=== PATIENT | female | born 1960 | race Caucasian/White ===

== ENCOUNTER 2016-10-31 01:50 | Emergency (ER) | payer OTHER ==
--- NOTE | 2016-10-31 03:21 | ED ORDER SUMMARY ---
..... Patient: NARESH CLARKE OrderSheet [facility] VisitID: [id number] [address] [place] [address] 56y, F Registration Date/Time: 10/31/2016 ORDER SHEET Weight: 108.8 kg (stated) Allergies: Sulfa Antibiotics GENERAL ORDERS: CBC w Diff Urgent (02:14 10/31/2016 Deny Hutchins) (Ack 2:15 HSoule) (3:36 TLewis R.N.) CMP Urgent (02:14 10/31/2016 Deny Hutchins) (Ack 2:15 HSoule) (3:36 TLewis R.N.) PT with INR Urgent (02:14 10/31/2016 Deny Hutchins) (Ack 2:15 HSoule) (3:36 TLewis R.N.) PTT Urgent (02:10/31/2016 Deny Hutchins) (Ack 2:15 HSoule) (3:36 TLewis R.N.) MEDICATION ORDERS: IV FLUIDS: IV Saline Lock (02:14 10/31/2016 Deny Hutchins) (Ack 2:15 HSoule) (2:32 HSoule) ORDER SHEET NOTES: [Electronically signed by Diego Alexandra R.N. (03:36 10/31/2016)] [Electronically signed by Antoine Estrada Dr. (05:32 10/31/2016)] [Electronically locked/signed by Diego Alexandra R.N. (03:36 10/31/2016)]
--- NOTE | 2016-10-31 03:21 | ED CLINICAL REPORT ---
Clinical Report - Physicians/Mid Levels [facility] [address] [place] [address] 10/31/2016 1:52 Patient: NARESH CLARKE Time Seen: 02:05; initial patient contact. Arrived- By private vehicle. Historian- patient. HISTORY OF PRESENT ILLNESS Chief Complaint: LEFT HIP INJURY. The injury occurred yesterday. Patient did not fall. (Started after scar tissue work at PT). (Physical Therapy). The patient complains of moderate pain. No blow to the head or neck pain. REVIEW OF SYSTEMS The patient has had numbness. No fever. All systems otherwise negative, except as recorded above. PAST HISTORY Auto immune, partial crest. Chronic pain. Thyroid Disease. Surgeries: Bladder Suspension. . Hip Surgery. Knee Surgery. Uterine ablation. Medications: Tolterodine Tartrate ER Oral. Cetirizine HCl Oral 10 mg, daily as needed. Gabapentin Oral 600 mg, 3x a day as needed. Levothyroxine Sodium Oral 50 mcg, daily. Lyrica Oral (Capsule 150 mg) 1 capsule, 3 rimes a day. Omeprazole Oral 40 mg, 2x a day. OxyCODONE HCl Oral 10 mg, 3x a day. Allergies: Sulfa Antibiotics. SOCIAL HISTORY Light tobacco smoker. No drug use. ADDITIONAL NOTES The nursing notes have been reviewed with agreement regarding the chief complaint, PMH and patient medications and allergies. PHYSICAL EXAM Vital Signs: 10/31/2016 01:56 BP: 130/71. HR: 88. RR: 18. O2 saturation: 99%. Temp: 98 F. Pain level now: 9/10. Have been reviewed as normal. Appearance: Alert. Oriented X3. No acute distress. ENT: Pharynx normal. CVS: Heart sounds normal. Rate normal. Rhythm normal. Respiratory: No respiratory distress. Breath sounds normal. Skin: No infection. Extremities: Left thigh: moderate tenderness and swelling and large ecchymosis located in the lateral aspect of upper thigh. Neuro: Oriented X 3. PROGRESS AND PROCEDURES Course of Care: U/S used to evaluate area in question and no fluid collections visualized. Discussed case with hospitalist, (call returned 03:19 Dr. Mathews. He agreed w/ outpt f/u.). Reviewed test results and need for additional work-up. Disposition: Discharged home in good condition. Condition: good. CLINICAL IMPRESSION Single hematoma to the left thigh. INSTRUCTIONS Apply ice for 20 minutes five times a day. Don't apply ice directly to skin. Follow-up: Follow up with your doctor in about three days. Call for an appointment. Screening today revealed the patient's blood pressure to be in the pre-hypertensive range. The patient should follow up with a primary care provider for blood pressure management. (Electronically signed by Antoine Estrada Dr. 10/31/2016 5:32)
--- NOTE | 2016-10-31 03:21 | ED CLINICAL REPORT ---
Clinical Report - Physicians/Mid Levels [address] [place] [address] 10/31/2016 1:52 Patient: NARESH CLARKE Time Seen: 02:05; initial patient contact. Arrived- By private vehicle. Historian- patient. HISTORY OF PRESENT ILLNESS Chief Complaint: LEFT HIP INJURY. The injury occurred yesterday. Patient did not fall. (Started after scar tissue work at PT). (Physical Therapy). The patient complains of moderate pain. No blow to the head or neck pain. REVIEW OF SYSTEMS The patient has had numbness. No fever. All systems otherwise negative, except as recorded above. PAST HISTORY Auto immune, partial crest. Chronic pain. Thyroid Disease. Surgeries: Bladder Suspension. . Hip Surgery. Knee Surgery. Uterine ablation. Medications: Tolterodine Tartrate ER Oral. Cetirizine HCl Oral 10 mg, daily as needed. Gabapentin Oral 600 mg, 3x a day as needed. Levothyroxine Sodium Oral 50 mcg, daily. Lyrica Oral (Capsule 150 mg) 1 capsule, 3 rimes a day. Omeprazole Oral 40 mg, 2x a day. OxyCODONE HCl Oral 10 mg, 3x a day. Allergies: Sulfa Antibiotics. SOCIAL HISTORY Light tobacco smoker. No drug use. ADDITIONAL NOTES The nursing notes have been reviewed with agreement regarding the chief complaint, PMH and patient medications and allergies. PHYSICAL EXAM Vital Signs: 10/31/2016 01:56 BP: 130/71. HR: 88. RR: 18. O2 saturation: 99%. Temp: 98 F. Pain level now: 9/10. Have been reviewed as normal. Appearance: Alert. Oriented X3. No acute distress. ENT: Pharynx normal. CVS: Heart sounds normal. Rate normal. Rhythm normal. Respiratory: No respiratory distress. Breath sounds normal. Skin: No infection. Extremities: Left thigh: moderate tenderness and swelling and large ecchymosis located in the lateral aspect of upper thigh. Neuro: Oriented X 3. PROGRESS AND PROCEDURES Course of Care: U/S used to evaluate area in question and no fluid collections visualized. Discussed case with hospitalist, (call returned 03:19 Dr. Mathews. He agreed w/ outpt f/u.). Reviewed test results and need for additional work-up. Disposition: Discharged home in good condition. Condition: good. CLINICAL IMPRESSION Single hematoma to the left thigh. INSTRUCTIONS Apply ice for 20 minutes five times a day. Don't apply ice directly to skin. Follow-up: Follow up with your doctor in about three days. Call for an appointment. Screening today revealed the patient's blood pressure to be in the pre-hypertensive range. The patient should follow up with a primary care provider for blood pressure management. (Electronically signed by Antoine Estrada Dr. 10/31/2016 5:32)
--- NOTE | 2016-10-31 03:21 | ED NURSING NOTES ---
Clinical Report - Nurses [facility] [address] [place] [address] 10/31/2016 1:52 Patient: NARESH CLARKE TRIAGE Triage time 01:55. --01:55 Diego Alexandra R.N. Acuity: LEVEL 3. Chief Complaint: BACK PAIN. SEPSIS SCREEN: Sepsis Screen: negative. Negative (no infection suspected/documented). JAVED COMA SCORE: Dyer Coma Scale: 15- eyes open spontaneously (4); best verbal response- oriented x 4 (5); best motor response- obeys commands (6). --02:03 Nighat Smith 01:56 10/31/16. BP: 130/71. HR: 88. RR: 18. O2 saturation: 99%. Temp: 98 F (oral). Pain level now: 06/07. --02:03 Nighat Smith. Weight: 108.8 kg stated. Height/Length: 62 inches Per Patient. BMI: 43.9. --02:01 Nighat Smith. Medications Cetirizine HCl Oral 10 mg, daily as needed. Gabapentin Oral 600 mg, 3x a day as needed. Levothyroxine Sodium Oral 50 mcg, daily. Lyrica Oral (Capsule 150 mg) 1 capsule, 3 rimes a day. Omeprazole Oral 40 mg, 2x a day. OxyCODONE HCl Oral 10 mg, 3x a day. --01:59 Nighat Smith Tolterodine Tartrate ER Oral. --01:59 Nighat Smith. Medication/allergy information source: the patient. --02:03 Nighat Smith. Allergies Sulfa Antibiotics. --01:59 Nighat Smith. History Arrived by private vehicle. Historian: patient. Unaccompanied. --01:55 Diego Alexandra R.N. Arrived by private vehicle, and accompanied by family. Primary physician (larissa). ( Patient reports she has had total of six surgeries for her hips, the most recent surgery was in February. She states she began having some pain and swelling on her left side over her scar. She reports she has been going to Physical therapy to work on the scar tissue. She had that done today and reports it has been increased pain and swelling since Physical therapy.). PAST MEDICAL HX: Immunizations: up-to-date. Last normal menstrual period- Ablation done over 10 years ago. SOCIAL HX: Light tobacco smoker (cigarette)- less than 1/2 a pack per day. No alcohol use or drug use. No infectious disease exposure. ABUSE ASSESSMENT: No report of abuse. FALL RISK ASSESSMENT: Fall risk assessment completed. No fall risk identified. NUTRITIONAL RISK ASSESSMENT: The nutritional risk assessment revealed no deficiencies. FUNCTIONAL ASSESSMENT: Functional assessment: no impairments noted. LEARNING NEEDS ASSESSMENT: The learning needs assessment revealed no barriers. SKIN INTEGRITY ASSESSMENT: Skin integrity risk assessment completed. No skin integrity risk identified. --02:03 Nighat Smith. PROBLEMS: Auto immune, partial crest. Chronic pain. Thyroid Disease. --02:00 Nighat Smith. ADDITIONAL SURGERIES: Bladder Suspension. . Hip Surgery. Knee Surgery. Uterine ablation. --02:00 Nighat Smith. Interventions ID band on patient. To treatment room. --02:03 Nighat Smith. PHYSICAL ASSESSMENT 02:04 10/31/16. Ambulatory to room. Patient gowned. GENERAL / NEURO / PSYCH: Alert. Oriented X 4. Appears in no acute distress. RESPIRATORY: Respirations not labored. EXTREMITIES: Limited ROM present (left hip , limited ROM due to pain). BACK: ROM of neck and back within normal limits. --02:04 Nighat Smith. NURSING PROGRESS NOTES Patient gowned. Reassurance given to the patient. Two patient identifiers checked. Call light placed in reach. Side rails up x 1. Bed placed in lowest position. Brakes of bed on. Patient ready for evaluation- chart flagged and ED physician notified. --02:07 Nighat Smith 02:27 10/31/2016 Site #1 started via IV in the left antecubital space with an 20g angiocath, with aseptic technique and good blood return; one attempt. Blood drawn: rainbow set. Labeled in the presence of the patient and sent to the lab. Saline lock flushed with 10 mL saline. --02:32 Luis, Nighat Patient ID band checked for patient name and birthdate: patient confirmed. Blood samples drawn from the left antecubital space peripheral IV site by nurse ; labeled in presence of the patient and sent to lab. Additional blood sent to lab. Line flushed with 10 mL normal saline post blood draw. --02:33 Nighat Smith. DISPOSITION / DISCHARGE 03:34 10/31/2016 Site #1 removed upon discharge. Catheter intact. Bandaid applied. --03:34 Diego Alexandra R.N. Departure time: 0330. Condition at departure: improved. ( Pt uses a cane for ambulation.). No learning barriers present. Discharge instructions provided and reviewed with the patient. Patient verbalized understanding. Written instructions provided in Barbadian. ( Pt was told about using ice for no longer than 20 mins and not on bare skin.). The patient was discharged by the physician. She was discharged home and accompanied by spouse. She left the Emergency Department ambulatory, via private vehicle and (cane). Spouse driving. --03:35 Diego Alexandra R.N. 03:33 10/31/16. BP: 132/85. HR: 82. RR: 15. O2 saturation: 97%. Pain level now 12/05. --03:35 Diego Alexandra R.N. Locked/Released at 10/31/2016 3:36 by Diego Alexandra R.N.
--- NOTE | 2016-10-31 03:21 | ED ORDER SUMMARY ---
..... Patient: NARESH CLARKE OrderSheet [facility] VisitID: [id number] [address] [place] [address] 56y, F Registration Date/Time: 10/31/2016 ORDER SHEET Weight: 108.8 kg (stated) Allergies: Sulfa Antibiotics GENERAL ORDERS: CBC w Diff Urgent (02:14 10/31/2016 Deny Hutchins) (Ack 2:15 HSoule) (3:36 TLewis R.N.) CMP Urgent (02:14 10/31/2016 Deny Hutchins) (Ack 2:15 HSoule) (3:36 TLewis R.N.) PT with INR Urgent (02:14 10/31/2016 Deny Hutchins) (Ack 2:15 HSoule) (3:36 TLewis R.N.) PTT Urgent (02:10/31/2016 Deny Hutchins) (Ack 2:15 HSoule) (3:36 TLewis R.N.) MEDICATION ORDERS: IV FLUIDS: IV Saline Lock (02:14 10/31/2016 Deny Hutchins) (Ack 2:15 HSoule) (2:32 HSoule) ORDER SHEET NOTES: [Electronically signed by Diego Alexandra R.N. (03:36 10/31/2016)] [Electronically signed by Antoine Estrada Dr. (05:32 10/31/2016)] [Electronically locked/signed by Diego Alexandra R.N. (03:36 10/31/2016)]
--- NOTE | 2016-10-31 05:32 | ED MAR SUMMARY ---
..... Medication Administration Record [facility] [address] [place], [place] [id number] Patient: NARESH CLARKE Visit ID: [id number] 56y, F Weight: 108.8 kg Height/Length: 62 in BMI: 43.9 ALLERGIES: Sulfa Antibiotics
--- NOTE | 2016-10-31 05:32 | ED MAR SUMMARY ---
..... Medication Administration Record [facility] [address] [place] [id number] Patient: NARESH CLARKE Visit ID: [id number] 56y, F Weight: 108.8 kg Height/Length: 62 in BMI: 43.9 ALLERGIES: Sulfa Antibiotics
--- NOTE | 2016-10-31 05:32 | ED DISCHARGE INSTRUCTIONS ---
Patient: NARESH CLARKE General Instructions [facility] VisitID: [id number] [address] [place] [address] 56y, F Registration Date/Time: 10/31/2016 Single hematoma to the left thigh. INSTRUCTIONS Apply ice for 20 minutes five times a day. Don't apply ice directly to skin. Follow-up: Follow up with your doctor in about three days. Call for an appointment. Screening today revealed the patient's blood pressure to be in the pre-hypertensive range. The patient should follow up with a primary care provider for blood pressure management. ADDITIONAL INFORMATION Hematoma A hematoma is caused by an injury with damage to small blood vessels. This causes blood to leak into the tissues. Blood forms a pocket under the skin that swells and looks like a purplish patch. Gradually the blood in the hematoma is absorbed back into the body. The swelling and pain of the hematoma will go away. This takes from one to four weeks, depending on the size of the hematoma. The skin over the hematoma may turn bluish then brown and yellow as the blood is dissolved and absorbed. Home Care: Limit motion of the joints near the hematoma. If the hematoma is large and painful, you should avoid sports and other vigorous physical activity until the swelling and pain goes away. Apply an ice pack (ice cubes in a plastic bag, wrapped in a towel) over the injured area for 20 minutes every 1-2 hours the first day. You should continue with ice packs 3-4 times a day for the next two days. Continue the use of ice packs for relief of pain and swelling as needed. You may use acetaminophen (Tylenol) or ibuprofen (Motrin, Advil) to control pain, unless another pain medicine was prescribed. [ NOTE : If you have chronic liver or kidney disease or ever had a stomach ulcer or GI bleeding, talk with your doctor before using these medicines.] Follow Up with your doctor or as advised by our staff. [ NOTE: A radiologist will review any X-rays that were taken. We will notify you of any new findings that may affect your care.] Get Prompt Medical Attention if any of the following occur: Redness around the hematoma Increase in pain or warmth in the hematoma Increase in size of the hematoma Fever of 100.4F (38C) or higher, or as directed by your healthcare provider If the hematoma is on the arm or leg, watch for: Increased swelling or pain in the extremity Numbness or tingling or blue color of the hand or foot Contusion,Soft Tissue You have a CONTUSION, which is a bruise with swelling and some bleeding under the skin. There are no broken bones. This injury takes a few days to a few weeks to heal. Home Care: 1) Keep the injured part elevated to reduce pain and swelling. This is especially important during the first 48 hours. 2) Make an ice pack (ice cubes in a plastic bag, wrapped in a towel) and apply for 20 minutes every 1-2 hours the first day. Continue this 3-4 times a day until the pain and swelling goes away. 3) You may use acetaminophen (Tylenol) or ibuprofen (Motrin, Advil) to control pain, unless another pain medicine was prescribed. [ NOTE : If you have chronic liver or kidney disease or ever had a stomach ulcer or GI bleeding, talk with your doctor before using these medicines.] Follow Up with your doctor or this facility if you are not improving within the next THREE days. [NOTE: If X-rays were taken, they will be reviewed by a radiologist. You will be notified of any new findings that may affect your care.] Get Prompt Medical Attention if any of the following occur: -- Pain or swelling increases -- Injured arm or leg becomes cold, blue, numb or tingly -- Redness, warmth or drainage from the skin You have been given the following additional information: Hematoma Contusion, Soft Tissue (Electronically signed by Antoine Estrada Dr. 10/31/2016 5:32)
--- NOTE | 2016-10-31 05:32 | ED MED RECONCILIATION SUMMARY ---
Patient: NARESH CLARKE Medication Reconciliation Report [facility] VisitID: [id number] [address] [place] [address] 56y, F Registration Date/Time: 10/31/2016 Weight: 108.8 kg Height/Length: 62 in. BMI: 43.9 ALLERGIES: Sulfa Antibiotics The patient's Home Medications are listed below: THE FOLLOWING MEDICATIONS NEED TO BE RECONCILED: Cetirizine HCl Oral 10 mg, daily Gabapentin Oral 600 mg, 3x a day Levothyroxine Sodium Oral 50 mcg, daily Lyrica Oral (150 mg) 1 capsule, 3 rimes a day Omeprazole Oral 40 mg, 2x a day OxyCODONE HCl Oral 10 mg, 3x a day Tolterodine Tartrate ER Oral The source(s) of the original Home Medication information: patient The following Medications were given to the patient in the Emergency Department: None. The following Medications were prescribed to the patient: None.
--- NOTE | 2016-10-31 05:32 | ED MED RECONCILIATION SUMMARY ---
Patient: NARESH CLARKE Medication Reconciliation Report [facility] VisitID: [id number] [address] [place] [address] 56y, F Registration Date/Time: 10/31/2016 Weight: 108.8 kg Height/Length: 62 in. BMI: 43.9 ALLERGIES: Sulfa Antibiotics The patient's Home Medications are listed below: THE FOLLOWING MEDICATIONS NEED TO BE RECONCILED: Cetirizine HCl Oral 10 mg, daily Gabapentin Oral 600 mg, 3x a day Levothyroxine Sodium Oral 50 mcg, daily Lyrica Oral (150 mg) 1 capsule, 3 rimes a day Omeprazole Oral 40 mg, 2x a day OxyCODONE HCl Oral 10 mg, 3x a day Tolterodine Tartrate ER Oral The source(s) of the original Home Medication information: patient The following Medications were given to the patient in the Emergency Department: None. The following Medications were prescribed to the patient: None.
== END 2016-10-31 03:30 | disposition home or self-care (01) ==
LOC: ED SRH 01:50
DX: S70.12XA Contusion of left thigh, initial encounter (principal); X58.XXXA Exposure to other specified factors, initial encounter; Y93.9 Activity, unspecified; Y92.9 Unspecified place or not applicable; Y99.9 Unspecified external cause status; E07.9 Disorder of thyroid, unspecified; F17.210 Nicotine dependence, cigarettes, uncomplicated; Z88.2 Allergy status to sulfonamides
CPT/HCPCS: 90100; 94001; 94060; 95059

== ENCOUNTER 2016-11-28 15:32 | Outpatient (CLI) | payer OTHER ==
--- NOTE | 2016-11-28 16:26 | DIAGNOSTIC IMAGING REPORT ---
PROCEDURE: XR CHEST 2 VIEW INDICATION: CHEST PAIN, ABNORMAL BRAIN MRI, HYPERTHYROIDISM, HEADACHE TECHNIQUE: PA and lateral views. COMPARISON: Chest 02/04/2016 FINDINGS: Lungs are clear. Heart and mediastinum are normal. Thorax is normal. IMPRESSION: 1. Negative chest.
== END 2016-11-28 23:00 ==
LOC: XR SRH 15:32
DX: R07.9 Chest pain, unspecified (principal); E05.90 Thyrotoxicosis, unspecified without thyrotoxic crisis or storm; G44.89 Other headache syndrome; R90.89 Other abnormal findings on diagnostic imaging of central nervous system
CPT/HCPCS: 90074; 90100; 90257; 90331; 90332; 90333; 90616; 91585; 95059; 95150; 98020

== ENCOUNTER 2016-12-18 13:48 | Outpatient (CLI) | payer OTHER ==
--- NOTE | 2016-12-18 14:12 | DIAGNOSTIC IMAGING REPORT ---
PROCEDURE: XR CHEST 2 VIEW INDICATION: URI, REACTIVE AIRWAY DISEASE TECHNIQUE: PA and lateral views. COMPARISON: None. FINDINGS: Lungs are clear. Heart and mediastinum are normal. Thorax is normal. IMPRESSION: 1. Negative chest.
== END 2016-12-18 23:00 ==
LOC: XR SRH 13:48
DX: J06.9 Acute upper respiratory infection, unspecified (principal); J45.909 Unspecified asthma, uncomplicated

== ENCOUNTER 2017-02-05 10:44 | Outpatient (CLI) | payer OTHER ==
--- NOTE | 2017-02-05 11:41 | DIAGNOSTIC IMAGING REPORT ---
PROCEDURE: XR SHOULDER 2 OR MORE VW-LEFT INDICATION: IMPINGEMENT SYNDROME OF LEFT SHOULDER TECHNIQUE: Three views. COMPARISON: None. FINDINGS: Osseous structures and joint spaces are normal. IMPRESSION: 1. Normal left shoulder.
== END 2017-02-05 23:00 ==
LOC: XR SRH 10:44
DX: M75.42 Impingement syndrome of left shoulder (principal)

== ENCOUNTER 2017-02-09 09:56 | Outpatient (CLI) | payer OTHER ==
--- NOTE | 2017-02-09 12:33 | DIAGNOSTIC IMAGING REPORT ---
PROCEDURE: XR UPPER GI WITH AIR INDICATION: DYSPHAGIA TECHNIQUE: Real time fluoroscopy was used on the upper GI system. Total fluoro time 3.0 minutes. Cumulative dose 3217.16 mGy 110 images obtained including cine imaging and last image hold screen capture images. COMPARISON: None. FINDINGS: The swallowing mechanism is normal without aspiration. No proximal esophageal diverticula, webs, or strictures. The mid and distal esophagus is also normal in course, contour, and caliber. There is a very small hiatal hernia in the upright position which minimally increases in size in the recumbent position. In the upright position, there is slight esophageal spasm distally which causes occasional intra esophageal stasis. In the recumbent position, there is mild inducible gastroesophageal reflux. Gastric morphology is normal. No ulceration or mass visible. There is prompt gastric emptying. The duodenal C-loop morphology is normal. No evidence of significant duodenal ulcer. IMPRESSION: 1. Mild distal esophageal spasm resulting in occasional intra esophageal stasis. 2. Mild gastroesophageal reflux in the recumbent position. This could lead to reflux esophagitis which can lead to spasm.
== END 2017-02-09 23:00 ==
LOC: XR SRH 09:56
DX: K22.4 Dyskinesia of esophagus (principal); K21.9 Gastro-esophageal reflux disease without esophagitis